=== PATIENT | female | born 1980 | race Caucasian/White ===

== ENCOUNTER → 2018-07-04 07:52 | Outpatient (CLI) | payer OTHER, SELFPAY ==
[2018-07-04 11:42] LABS: Anion Gap 10.7 mmol/L (3-11); BUN 19 mg/dL (7-18); CO2 24.3 mmol/L (21.0-32.0); CREATININE 0.88 mg/dL (0.55-1.02); Calcium 8.7 mg/dL (8.5-10.1); Chloride 105 mmol/L (98-107); Cholesterol 194 mg/dL (50-200); Glucose 87 mg/dL (70-100); HDL Cholesterol 70 mg/dL (40-60); LDL CHOLESTEROL 112 mg/dL (<100); Potassium 4.2 mmol/L (3.5-5.1); Sodium 140 mmol/L (136-145); Triglyceride 43 mg/dL (30-150)
== END ==
PROVIDERS: PCP Nurse Practitioner Family; Visit Provider Nurse Practitioner Family
DX: Z00.00 Encounter for general adult medical examination without abnormal findings (principal)
CPT/HCPCS: 36415; 80048; 80061; 83721

== ENCOUNTER 2019-07-17 07:36 | Outpatient (CLI) | payer OTHER, SELFPAY ==
[2019-07-17 12:13] LABS: Hemoglobin A1C 4.9 % (4.5-6.2)
[2019-07-17 12:30] LABS: ALT 27 U/L (12-78); AST 14 U/L (15-37); Albumin 3.9 g/dL (3.4-5.0); Alkaline Phosphatase 61 U/L (46-116); BUN 16 mg/dL (7-18); Bilirubin, Total 0.5 mg/dL (0.2-1.0); CREATININE 0.94 mg/dL (0.55-1.02); Calcium 8.6 mg/dL (8.5-10.1); Chloride 105 mmol/L (98-107); FREE T4 0.95 ng/dL (0.76-1.46); Glucose 79 mg/dL (70-100); Potassium 4.4 mmol/L (3.5-5.1); Sodium 142 mmol/L (136-145); Total Protein 6.7 g/dL (6.4-8.2)
[2019-07-17 12:47] LABS: Calculated LDL 94 mg/dL; Cholesterol 167 mg/dL (50-200); HDL Cholesterol 62 mg/dL (40-60); Triglyceride 58 mg/dL (30-150)
[2019-07-17 12:48] LABS: ESR 5 mm/hr (0-20)
[2019-07-18 09:41] LABS: Rheumatoid Factor 8 IU/mL (<12.5)
[2019-07-18 11:32] LABS: Lyme Ab w Rflx to Lyme Confirm Negative
[2019-07-18 13:56] LABS: ANA Interpretation Negative (NEGAT)
[2019-07-19 17:13] LABS: Anaplasma phagocytophilum Negative (Negative); B. miyamotoi PCR Negative (Negative); Babesia divergens/MO-1 Negative (Negative); Babesia duncani Negative (Negative); Babesia microti Negative (Negative); Ehrlichia chaffeensis Negative (Negative); Ehrlichia ewingii/canis Negative (Negative); Ehrlichia muris eauclairensis Negative (Negative)
== END 2019-07-17 07:56 ==
PROVIDERS: PCP Nurse Practitioner Family; Visit Provider Nurse Practitioner Family
DX: E78.5 Hyperlipidemia, unspecified; M79.10 Myalgia, unspecified site; M25.50 Pain in unspecified joint
CPT/HCPCS: 36415; 80053; 80061; 83721; 85652; 87798; 83036; 84439; 84443; 86038; 86140; 86431; 86618

== ENCOUNTER 2019-08-09 00:39 | Outpatient (CLI) | payer OTHER, SELFPAY ==
--- NOTE | 2019-08-09 06:09 | DI.MAMMO_ITS ---
SYMPTOM/DIAGNOSIS: SCREENING, Z12.31 MAMMOGRAMS: Mammograms were interpreted according to the usual protocol including computer analysis with CAD system, tomosynthesis and C view imaging. This is a baseline examination. The breasts are composed of scattered fibroglandular densities, breast density, Category B. No suspicious masses or suspicious microcalcifications are seen. IMPRESSION: Category 1, breast density, Category B. Negative mammogram. Yearly screening mammography is recommended. [facility] ASSESSMENT OF FINDINGS: Negative. Category 1. Patient will receive a letter notifying them of these results. BI-RADS category B. There are scattered areas of fibroglandular density.
== END 2019-08-09 00:59 ==
PROVIDERS: PCP Nurse Practitioner Family; Visit Provider Nurse Practitioner Family
DX: Z12.31 Encounter for screening mammogram for malignant neoplasm of breast (principal)
CPT/HCPCS: 77063; 77067

== ENCOUNTER 2020-08-13 00:36 | Outpatient (CLI) | payer OTHER, SELFPAY ==
--- NOTE | 2020-08-13 07:15 | DI.MAMMO_ITS ---
EXAM: MAMMO SCREENING CLINICAL HISTORY: screening,Z12.39 TECHNIQUE: Mammograms were interpreted according to the usual protocol including computer analysis w [employer] CAD system, tomosynthesis and C-view imaging. COMPARISON: FINDINGS: The breasts are of moderate density symmetrical distribution of fibroglandular tissue. No dominant m ass or clumped microcalcification is identified in either breast. The current examination is compare d with previous examination of July 2019 and there is question of increased prominence of a foca l area of asymmetric radiodensity projected in the lateral central portion of the right breast on CC view. No other significant change seen. Additional spot compression views of this area are requeste d for further evaluation, to include a CC spot compression view of the right breast IMPRESSION: Additional mammographic views of the right breast requested as described above, to include a CC spot compression view of the right breast. Breast ultrasound may be indicated as well depending on the re sults of the additional mammographic views. BI-RADS Category 0 - Assessment Incomplete: Need additional imaging evaluation Breast Density - Category B - Scattered areas of fibroglandular density
== END 2020-08-13 00:56 ==
PROVIDERS: PCP Nurse Practitioner Family; Visit Provider Nurse Practitioner Family
DX: Z12.31 Encounter for screening mammogram for malignant neoplasm of breast (principal); R92.8 Other abnormal and inconclusive findings on diagnostic imaging of breast
CPT/HCPCS: 77063; 77067

== ENCOUNTER 2020-08-21 01:26 | Outpatient (CLI) | payer OTHER, SELFPAY ==
--- NOTE | 2020-08-21 10:30 | DI.MAMMO_ITS ---
EXAM: MG MAMMO SCREEN CALL BACK UNI and U/S breast RT limited CLINICAL HISTORY: F/U MAMMO, ?INCREASED PROMINENCE OF ASYMMETRIC DENSITY. TECHNIQUE: Craniocaudal and mediolateral oblique Full Field Digital Mammography views of the right b reast with Computer Aided Diagnosis followed by Tomosynthesis and right breast ultrasound. COMPARISON: Priors available for comparison. FINDINGS: Mammography/Tomosynthesis: Masses/Architectural Distortion: A parenchymal lymph node is again seen in the outer right breast. N o persistent asymmetric density is seen. Microcalcifictions: No suspicious pleomorphic-type are seen. Skin Thickening/Nipple Retraction: None. Right breast US: Echotexture: Normal appearance of the glandular tissue. Shadowing: No suspicious foci. Cyst: None. Solid lesions: None seen. Ductal dilation: None. IMPRESSION: 1. No evidence of malignancy is noted. 2. Unless there is more urgent need, follow-up screening mammography is recommended, as per [place] guidelines. 3. The findings were discussed with the patient on the date of the examination. BI-RADS Category 1 - Negative Breast Density - Category B - Scattered areas of fibroglandular density A negative radiographic report should not delay biopsy if a dominant or clinically suspicious mass is present. Up to ten percent of cancers are not identified on mammography. A negative report may reinforce clinical impression. Adenosis and dense breasts may obscure an underlying neoplasm. False positive reports average 6 to 10%. Patient will receive a letter notifying them of these results.
== END 2020-08-21 01:46 ==
PROVIDERS: PCP Nurse Practitioner Family; Visit Provider Nurse Practitioner Family
DX: Z12.39 Encounter for other screening for malignant neoplasm of breast (principal); R92.2 Inconclusive mammogram
CPT/HCPCS: 76642; 77063; 77067

== ENCOUNTER 2021-07-25 09:16 | Outpatient (REF) | payer OTHER, SELFPAY ==
--- NOTE | 2021-07-25 08:00 | PAPFT_PTH ---
PATIENT: Manda Noel LOC: [facility] U#:[id number] AGE/SX: 40/F ROOM: RE07/25/[address]: NATALIE Ornelas : 1980 BED: DIS: 07/25/2021 SPEC #: [id number] RECD: 07/25/21 12:54 STATUS: ASHER REQ #: [id number] NICKOLAS: 07/25/21 08:[address]: Susan Suárez DEPT: [facility] Cytology RECD BY: Diana Benito Tissues: 1 - CX/ENDOCX FOR PAP SMEARS Procedures: PAP THIN PREP/UVM Screening HPV DNA PROBE Comments: [id number]
[2021-07-25 13:19] LABS: Bilirubin Negative (Negative); Blood Negative (Negative); Clarity Clear (Clear); Glucose Negative (Negative); Ketones Negative (Negative); Leukocyte Esterase Negative (Negative); Nitrite Negative (Negative); Specific Gravity 1.015 (1.005-1.025); Urobilinogen 0.2 EU/dL (Up TO 0.2)
[2021-07-25 13:22] LABS: Abs Immature Grans 0.02 10^3/uL (0.0-0.06); Absolute Basophil Count 0.05 10^3/uL (0.0-0.2); Absolute Eosinophil Count 0.03 10^3/uL (0.0-0.7); Absolute Lymphocyte Count 2.05 10^3/uL (1.2-3.4); Absolute Monocyte Count 0.42 10^3/uL (0.1-0.8); Absolute Neutrophil Count 3.99 10^3/uL (1.2-6.7); Basophils % 0.8; Eosinophils % 0.5; HCT 40.8 % (36.0-46.0); HGB 13.6 g/dL (11.2-15.7); Immature Grans % 0.3; Lymphocytes % 31.3; MCH 31.1 pg (27.0-33.0); MCHC 33.3 % (32.0-36.0); MCV 93.4 fL (80-95); MPV 10.5 fL (8.0-11.0); Monocytes % 6.4; Neutrophils % 60.7; Nucleated RBC 0 %; Platelet Count 296 10^3/uL (130-400); RBC 4.37 10^6/uL (3.93-5.22); RDW 11.9 % (11.7-14.6); RDW-SD 40.7 fL; WBC 6.56 10^3/uL (4.4-10.8)
[2021-07-25 13:51] LABS: ALT 20 U/L (14-59); AST 17 U/L (15-37); Albumin 4.5 g/dL (3.4-5.0); Alkaline Phosphatase 61 U/L (46-116); Anion Gap 9.4 mmol/L (3-11); BUN 10 mg/dL (7-18); Bilirubin, Total 0.5 mg/dL (0.2-1.0); CO2 27.6 mmol/L (21.0-32.0); CREATININE 0.8 mg/dL (0.55-1.02); Calcium 9.3 mg/dL (8.5-10.1); Calculated LDL 96 mg/dL (<100); Chloride 104 mmol/L (98-107); Cholesterol 176 mg/dL (<200); Glucose 83 mg/dL (74-106); HDL Cholesterol 73 mg/dL (40-60); Potassium 4.3 mmol/L (3.5-5.1); Sodium 141 mmol/L (136-145); TSH (W/Ref FT4) 2.13 uIU/mL (0.36-3.74); Total Protein 7.2 g/dL (6.4-8.2); Triglyceride 35 mg/dL (<150)
[2021-07-26 11:38] LABS: COVID-19 RT-PCR UVMMC Result Negative (Negative)
== END 2021-07-25 09:17 | disposition home or self-care (01) ==
LOC: LBN 09:16
PROVIDERS: PCP Nurse Practitioner Family; Visit Provider Nurse Practitioner Family
DX: Z00.00 Encounter for general adult medical examination without abnormal findings (principal); R10.30 Lower abdominal pain, unspecified; R10.2 Pelvic and perineal pain; R51.9 Headache, unspecified; Z12.4 Encounter for screening for malignant neoplasm of cervix; Z11.51 Encounter for screening for human papillomavirus (HPV); Z20.822 Contact with and (suspected) exposure to COVID-19
CPT/HCPCS: 80053; 80061; 88142; U0003; 81003; 84443; 85025; 87480; 87510; 87624; 87660

== ENCOUNTER 2021-08-25 02:01 | Outpatient (CLI) | payer OTHER, SELFPAY ==
--- NOTE | 2021-08-25 08:15 | DI.MAMMO_ITS ---
Exam(s) MAMMO SCREENING EXAM: MAMMO SCREENING CLINICAL HISTORY: screening, Z12.39. TECHNIQUE: Bilateral full field digital CC and MLO mammographic images were obtained with 3D tomosyn thesis and utilizing computer aided detection (CAD). COMPARISON: Prior mammograms dating back to 2019, the most recent being July 2020. Ultrasound July 2020 was reviewed FINDINGS: There has been no significant change in the appearance and distribution of fibroglandular tissue. There are no new spiculated masses nor malignant appearing microcalcification groups. Benign-appearing lymph node in the upper-outer quadrant of the right breast is again noted. Small be nign-appearing lymph node anteriorly in the opposite-left breast is also again noted. There is no significant architectural distortion nor skin thickening-retraction. IMPRESSION: No radiographic evidence of malignancy. BI-RADS Category 1 - Negative Breast Density - Category B - Scattered areas of fibroglandular density Breast density Category C or D implies that the patient has dense breast tissue. Dense breast tissue can make it harder to find cancer on a mammogram. Dense breast tissue is also associated with an incr eased risk of breast cancer. This information about the result of the mammogram report was provided to the patient to raise their awareness. Use this report when you speak with the patient about their risks for breast cancer, which includes their family history. At that time, you may recommend additional screening tests (Ultrasoun d or MRI) as these tests may add significant information. A negative radiographic report should not delay biopsy if a dominant or clinically suspicious mass is present. Up to ten percent of cancers are not identified on mammography. A negative report may reinforce clinical impression. Adenosis and dense breasts may obscure an underlying neoplasm. False positive reports average 6 to 10%. Patient will receive a letter notifying them of these results.
== END 2021-08-25 02:21 ==
PROVIDERS: PCP Nurse Practitioner Family; Visit Provider Nurse Practitioner Family
DX: Z12.31 Encounter for screening mammogram for malignant neoplasm of breast (principal)
CPT/HCPCS: 77063; 77067

== ENCOUNTER 2021-09-01 01:50 | Outpatient (CLI) | payer OTHER, SELFPAY ==
--- NOTE | 2021-09-01 07:30 | DI.RAD_ITS ---
Exam(s) XR HIP RT COMPLETE AP PELVIS EXAM: XR HIP RT COMPLETE AP PELVIS INDICATION: right hip pain x 6mo,m25.551. COMPARISON: No exams were available for comparison TECHNIQUE: 2D digital imaging was performed. FINDINGS: Hip joint spaces are well maintained. No joint space or soft tissue calcifications. SI joints and pub ic symphysis are unremarkable. IMPRESSION: Negative pelvis and right hip. DATA REPOSITORY: RADIATION DOSE DELIVERED:
--- NOTE | 2021-09-01 10:45 | DI.RAD_ITS ---
Exam(s) XR LUMBAR SPINE COMPLETE EXAM: XR LUMBAR SPINE COMPLETE CLINICAL HISTORY: low back pain, M54.50. TECHNIQUE: 2D digital imaging was performed. COMPARISON: No exams were available for comparison FINDINGS: BONES: No fracture or destructive lesion. Vertebral bodies are unremarkable. Mild facet hypertrophy identified L4-5 and L5-S1.. There is moderate to severe narrowing of the L4-5 and L5-S1 disc spaces. There are small endplate os teophytes. Remaining disc spaces are well maintained. ALIGNMENT: Lumbar spinal alignment is within normal limits. No spondylolysis or spondylolisthesis. SOFT TISSUE: Normal. IMPRESSION: Degenerative disc changes at L4-5 and L5-S1. DATA REPOSITORY: RADIATION DOSE DELIVERED:
== END 2021-09-01 02:10 ==
PROVIDERS: PCP Nurse Practitioner Family; Visit Provider Nurse Practitioner Family
DX: M25.551 Pain in right hip (principal); M54.50 Low back pain, unspecified; M51.36 Other intervertebral disc degeneration, lumbar region; M51.37 Other intervertebral disc degeneration, lumbosacral region
CPT/HCPCS: 72110; 73502

== ENCOUNTER 2021-09-10 03:01 | Outpatient (CLI) | payer OTHER, SELFPAY ==
--- NOTE | 2021-09-10 09:15 | DI.MRI_ITS ---
Exam(s) MR LUMBAR SPINE WO EXAM: MR LUMBAR SPINE WO CLINICAL HISTORY: chronic low back pain,degenertive joint disease,radiculopathy,m47.816,. TECHNIQUE: Multiplanar multisequence MRI of the Lumbar spine was performed. COMPARISON: CR XR LUMBAR SPINE COMPLETE from 09/01/2021 FINDINGS: Plain films of 09/01/2021 reviewed. Conus medullaris is at normal level. There is no evidence of conus mass nor subjacent clumping of in trathecal nerve roots to suggest arachnoiditis. The distal thecal sac appears unremarkable.There is no evidence of Tarlov intrasacral cysts nor other significant findings within the sacral canal Bones:There are no fractures nor ominous osseous lesions in the lumbar vertebral bodies and visualize d sacrum. With respect to the individual levels... T12-L1: Unremarkable L1-2: Normal disc height and signal. No disc herniation nor central canal stenosis.No foraminal steno sis L2-3: Normal disc height. No disc herniation nor central canal stenosis.No foraminal stenosis.No face t arthropathy. L3-4: Normal disc height. There is a right paracentral disc herniation which extends posteriorly 4 m illimeters, indenting the thecal sac at this level. Disc protrusion is approximately 8 millimeters w naz.This disc herniation impresses the thecal sac at this level. It does not extend into the exiting neural foramen and these are patent on both sides.No facet arthropathy. L4-5: Moderate decreased disc height. Modic type 1 sub endplate marrow edema changes. There is jesus lar bulging with a superimposed central subligamentous disc protrusion. This extends posteriorly 2 m illimeters and is approximately 10 millimeters wide. Density anterior aspect thecal sac. Mild centr al canal stenosis. No significant foraminal stenosis. Minimal facet degenerative changes. L5-S1: This level exhibits chronic advanced disc space narrowing and Modic type 2 sub endplate marrow fatty changes. There is symmetrical annular bulging at this level without a significant disc hernia tion and central canal dimensions are within normal limits. There is mild foraminal stenosis bilater ally which is vertical foraminal stenosis due to the disc height loss. Soft tissues: paraspinal soft tissues appear unremarkable. IMPRESSION: 1. At the L3-4 level there is a right paracentral disc herniation as described above. This impresses the thecal sac at this level. It is not extend into the exiting neural foramina at this level. 2. Other findings at L4-5 and L5-S1 levels as described above. DATA REPOSITORY:
== END 2021-09-10 03:21 ==
PROVIDERS: PCP Nurse Practitioner Family; Visit Provider Nurse Practitioner Family
DX: M47.816 Spondylosis without myelopathy or radiculopathy, lumbar region (principal); M54.16 Radiculopathy, lumbar region; M51.26 Other intervertebral disc displacement, lumbar region; M48.07 Spinal stenosis, lumbosacral region; M48.061 Spinal stenosis, lumbar region without neurogenic claudication
CPT/HCPCS: 72148

== ENCOUNTER → 2022-08-26 02:16 | Outpatient (CLI) | payer OTHER, SELFPAY ==
--- NOTE | 2022-08-26 08:30 | DI.MAMMO_ITS ---
Exam(s) MAMMO SCREENING EXAM: MAMMO SCREENING CLINICAL HISTORY: screening,z12.39 TECHNIQUE: Bilateral full field digital CC and MLO mammographic images were obtained with 3D tomosyn thesis and utilizing computer aided detection (CAD). COMPARISON: Available for comparison. FINDINGS: Masses/Architectural Distortion: There is an ovoid density in the outer left breast on the CC view wh ich is shown interval increase in size. Microcalcifications: No suspicious pleomorphic-type are seen. Skin Thickening/Nipple Retraction: None. IMPRESSION: 1. Ovoid density in the outer left breast which has shown interval increase in size. 2. This area should be further evaluated with spot compression view ultrasound may be indicated at th at time. BI-RADS Category 0 - Assessment Incomplete: Need additional imaging evaluation Breast Density - Category B - Scattered areas of fibroglandular density Breast density category C or D implies that the patient has dense breast tissue. Dense breast tissue is very common and is not abnormal but dense breast tissue can make it harder to find cancer on a ma mmogram. Also, dense breast tissue may increase their breast cancer risk. This information about the result of the mammogram report was provided to the patient to raise their awareness. Use this report when you speak with the patient about their risks for breast cancer, which includes their family hist ory. At that time, you may recommend for more screening tests (Ultrasound or MRI) as they might be us eful based on their risk. A negative radiographic report should not delay biopsy if a dominant or clinically suspicious mass is present. Up to ten percent of cancers are not identified on mammography. A negative report may reinforce clinical impression. Adenosis and dense breasts may obscure an underlying neoplasm. False positive reports average 6 to 10%. Patient will receive a letter notifying them of these results.
== END ==
PROVIDERS: PCP Nurse Practitioner Family; Visit Provider Nurse Practitioner Family
DX: Z12.31 Encounter for screening mammogram for malignant neoplasm of breast (principal); R92.8 Other abnormal and inconclusive findings on diagnostic imaging of breast
CPT/HCPCS: 77063; 77067

== ENCOUNTER → 2022-09-01 01:17 | Outpatient (CLI) | payer OTHER, SELFPAY ==
--- NOTE | 2022-09-01 | DI.US_ITS ---
Exam(s) MG MAMMO SCREEN CALL BACK UNI US BREAST LT COMPLETE EXAM: MG MAMMO SCREEN CALL BACK UNI -LEFT AND COMPLETE LEFT BREAST ULTRASOUND CLINICAL HISTORY: F/U ABNL MAMMO, OUTER LT BREAST OVOID DENSITY INCREASED IN SIZE. TECHNIQUE: Unilateral spot mammographic images obtained with 3D tomosynthesisand utilizing computer aided detection (CAD). . Complete left breast Ultrasound was also performed, including all 4 quadrants, the retroareolar regio n, and the ipsilateral axilla. COMPARISON: Prior mammograms were reviewed. This additional imaging was performed due to findings described on the recent screening mammogram of 08/26/2022. FINDINGS: DIAGNOSTIC LEFT BREAST MAMMOGRAM: Additional mammographic views performed todayrender the finding similar in appearance to prior mammog jose. COMPLETE LEFT BREAST ULTRASOUND: Ultrasound performed today reveals a solitary finding which is at the 2 o'clock position has the appe arance of a 5 x 3 millimeter benign intramammary lymph node. This corresponds to the finding on the mammogram. There are no other significant focal ultrasound findings in all 4 quadrants nor in the re troareolar region. Scanning of the left axilla is negative for significant adenopathy. IMPRESSION: 1. Benign-appearing mammographic finding. 2. Benign-appearing corresponding ultrasound finding which has appearance of a benign lymph node. Appropriate follow-up , as discussed by myself with the patient today, is repeat left breast mammogra m in 6 months.. The patient was informed of these findings and recommendations prior to leaving the department today. BI-RADS Category 3 - 6 month - Probably Benign Finding: Recommend follow-up mammography in 6 months Breast Density - Category B - Scattered areas of fibroglandular density Breast density Category C or D implies that the patient has dense breast tissue. Dense breast tissue can make it harder to find cancer on a mammogram. Dense breast tissue is also associated with an incr eased risk of breast cancer. This information about the result of the mammogram report was provided to the patient to raise their awareness. Use this report when you speak with the patient about their risks for breast cancer, which includes their family history. At that time, you may recommend additional screening tests (Ultrasoun d or MRI) as these tests may add significant information. A negative radiographic report should not delay biopsy if a dominant or clinically suspicious mass is present. Up to ten percent of cancers are not identified on mammography. A negative report may reinforce clinical impression. Adenosis and dense breasts may obscure an underlying neoplasm. False positive reports average 6 to 10%. Patient will receive a letter notifying them of these results.
== END ==
PROVIDERS: PCP Nurse Practitioner Family; Visit Provider Nurse Practitioner Family
DX: Z12.31 Encounter for screening mammogram for malignant neoplasm of breast (principal); R92.8 Other abnormal and inconclusive findings on diagnostic imaging of breast
CPT/HCPCS: 76642; 77063; 77067

== ENCOUNTER 2022-12-14 12:03 | Outpatient (REF) | payer OTHER, SELFPAY ==
[2022-12-14 12:16] LABS: Bilirubin Negative (Negative); Blood Moderate (Negative); Clarity Clear (Clear); Glucose 100 mg/dL (Negative); Ketones Negative (Negative); Leukocyte Esterase Negative (Negative); Nitrite Positive (Negative); Urobilinogen 0.2 EU/dL (Up TO 0.2)
[2022-12-14 12:36] LABS: Epithelial Cells Few HPF (Negative)
[2022-12-14 12:37] LABS: Bacteria Moderate HPF (Negative); C & S Indicated? Yes; Casts Negative LPF (Negative); Crystals Negative HPF (Negative); Mucus Negative (Negative); Other Cells Few Renal (Negative)
== END 2022-12-14 12:04 | disposition home or self-care (01) ==
LOC: LBN 12:03
PROVIDERS: PCP Nurse Practitioner Family; Visit Provider Nurse Practitioner Family
DX: R35.0 Frequency of micturition (principal); R82.998 Other abnormal findings in urine
CPT/HCPCS: 87077; 81003; 81015; 87086; 87186

== ENCOUNTER 2023-03-10 01:09 | Outpatient (CLI) | payer OTHER, SELFPAY ==
--- NOTE | 2023-03-10 07:45 | DI.MAMMO_ITS ---
Exam(s) MG MAMMO DIAGNOSTIC UNI US BREAST LT LIMITED EXAM: MAMMO DIAGNOSTIC UNI-LEFT AND COMPLETE LEFT BREAST ULTRSOUND CLINICAL HISTORY: Abnormal mammo left, 6 mo f/u, r92.8,z09. TECHNIQUE: Unilateral spot mammographic images were obtained with 3D tomosynthesis technique and uti lizing computer aided detection (CAD). Complete left breast ultrasound performed including all 4 quadrants as well as the left axilla. COMPARISON: Prior mammograms were reviewed, the most recent being AUGUST 2022.. Prior ultrasound of August 2022 was also reviewed. FINDINGS: DIAGNOSTIC LEFT BREAST MAMMOGRAM: The kidney-shaped small nodular density in the upper-outer quadrant is unchanged mammographically fro m 08/26/2022. There are no new spiculated masses nor malignant-appearing microcalcification groups i n the left breast. There is no new architectural distortion or skin thickening-traction COMPLETE LEFT BREAST ULTRASOUND: Again noted is a solitary finding of the 2 o'clock position measuring 5 by 3 mm and having the appear ance of a probable benign intramammary lymph node. This appears unchanged in size and configuration from the ultrasound of August 2022. There are no other focal ultrasound findings in all 4 quadrants of the left breast. Scanning of the left axilla is negative for significant adenopathy IMPRESSION: 1. Stable benign-appearing left breast mammogram findings. 2. Stable benign-appearing corresponding left breast ultrasound finding, probably benign intramammary lymph node. Appropriate follow-up is to keep this patient on her yearly mammogram schedule, this implying that he r next bilateral mammogram would be in July or August 2023, with earlier imaging if a self dete cted breast change is noted.. The patient was informed of the findings and follow-up recommendations prior to leaving the [facility] today. BI-RADS Category 2 - Benign Findings Breast Density - Category B - Scattered areas of fibroglandular density Breast density Category C or D implies that the patient has dense breast tissue. Dense breast tissue can make it harder to find cancer on a mammogram. Dense breast tissue is also associated with an incr eased risk of breast cancer. This information about the result of the mammogram report was provided to the patient to raise their awareness. Use this report when you speak with the patient about their risks for breast cancer, which includes their family history. At that time, you may recommend additional screening tests (Ultrasoun d or MRI) as these tests may add significant information. A negative radiographic report should not delay biopsy if a dominant or clinically suspicious mass is present. Up to ten percent of cancers are not identified on mammography. A negative report may reinforce clinical impression. Adenosis and dense breasts may obscure an underlying neoplasm. False positive reports average 6 to 10%. Patient will receive a letter notifying them of these results.
== END 2023-03-10 01:29 ==
LOC: DI 01:09
PROVIDERS: PCP Nurse Practitioner Family; Visit Provider Nurse Practitioner Family
DX: R92.8 Other abnormal and inconclusive findings on diagnostic imaging of breast (principal); Z09 Encounter for follow-up examination after completed treatment for conditions other than malignant neoplasm
CPT/HCPCS: 76642; 77061; 77065; G0279

== ENCOUNTER 2023-06-18 01:23 | Outpatient (CLI) | payer OTHER, SELFPAY ==
[2023-06-18 12:26] LABS: Abs Immature Grans 0.06 10^3/uL (0.0-0.06); Absolute Basophil Count 0.07 10^3/uL (0.0-0.2); Absolute Eosinophil Count 0.05 10^3/uL (0.0-0.7); Absolute Lymphocyte Count 2.08 10^3/uL (1.2-3.4); Absolute Monocyte Count 0.65 10^3/uL (0.1-0.8); Basophils % 0.6; Eosinophils % 0.4; HCT 43.3 % (36.0-46.0); HGB 14.5 g/dL (11.2-15.7); Immature Grans % 0.5; Lymphocytes % 17.2; MCH 31.9 pg (27.0-33.0); MCHC 33.5 % (32.0-36.0); MCV 95 fL (80-95); MPV 10.3 fL (8.0-11.0); Monocytes % 5.4; Neutrophils % 75.9; Platelet Count 320 10^3/uL (130-400); RBC 4.55 10^6/uL (3.93-5.22); RDW-SD 42.4 fL; WBC 12.11 10^3/uL (4.4-10.8)
[2023-06-18 12:30] LABS: Absolute Neutrophil Count 9.19 10^3/uL (1.2-6.7)
[2023-06-18 12:58] LABS: Hemoglobin A1C 5.1 % (<5.7)
[2023-06-18 13:01] LABS: Vitamin D 25 Total 43.3 ng/mL (30-100)
[2023-06-18 13:17] LABS: ALT 25 U/L (14-59); AST 17 U/L (15-37); Albumin 4.4 g/dL (3.4-5.0); Alkaline Phosphatase 70 U/L (46-116); Anion Gap 11.2 mmol/L (3-11); BUN 14 mg/dL (7-18); Bilirubin, Total 0.6 mg/dL (0.2-1.0); CO2 25.8 mmol/L (21.0-32.0); CREATININE 0.9 mg/dL (0.55-1.02); Calcium 9.2 mg/dL (8.5-10.1); Calculated LDL 94 mg/dL (<100); Chloride 104 mmol/L (98-107); Cholesterol 187 mg/dL (<200); Estimated GFR 80.84 (mL/min/1.73m2); Glucose 96 mg/dL (74-106); HDL Cholesterol 86 mg/dL (40-60); Potassium 4.2 mmol/L (3.5-5.1); Sodium 141 mmol/L (136-145); TSH (W/Ref FT4) 1.21 uIU/mL (0.36-3.74); Total Protein 7.3 g/dL (6.4-8.2); Triglyceride 37 mg/dL (<150); Vitamin B12 600 pg/mL (193-986)
[2023-06-18 13:19] LABS: HCG Quant, Pregnancy < 1 mIU/mL (1-3)
[2023-06-18 23:25] LABS: FSH 4.7 mIU/mL (See Note)
[2023-06-18 23:28] LABS: Prolactin 7.5 ng/mL (See Note)
[2023-06-21 09:48] LABS: Lyme Ab w Rflx to Lyme Confirm Negative (Negative)
[2023-06-22 15:38] LABS: Anaplasma phagocytophilum Negative (Negative); B. miyamotoi PCR Negative (Negative); Babesia divergens/MO-1 Negative (Negative); Babesia duncani Negative (Negative); Babesia microti Negative (Negative); Ehrlichia chaffeensis Negative (Negative); Ehrlichia ewingii/canis Negative (Negative); Ehrlichia muris eauclairensis Negative (Negative)
== END 2023-06-18 01:24 | disposition home or self-care (01) ==
LOC: LOS 01:24
PROVIDERS: PCP Nurse Practitioner Family; Referring Provider Nurse Practitioner Family; Visit Provider Nurse Practitioner Family
DX: R53.83 Other fatigue (principal); Z00.00 Encounter for general adult medical examination without abnormal findings
CPT/HCPCS: 36415; 80053; 80061; 82306; 87798; 82607; 83001; 83036; 84146; 84443; 84702; 85025; 86618

== ENCOUNTER → 2023-08-26 02:45 | Outpatient (CLI) | payer OTHER, SELFPAY ==
--- NOTE | 2023-08-26 12:55 | DI.MRI_ITS ---
Exam(s) MR LOWER JOINT RT WO EXAM: MR LOWER JOINT RT WO CLINICAL HISTORY: chronic right hip pain,M25.551 TECHNIQUE: Multiplanar multisequence MRI of the hip was performed. COMPARISON: CR XR HIP RT COMPLETE AP PELVIS from 09/01/2021 FINDINGS: MARROW:There is no evidence of fracture, bone contusion, nor avascular necrosis. There are no signif icant osseous lesions.There is no significant osseous excrescence at the femoral head-neck junction t o suggest the presence of cam-type MARSHALL. EFFUSION: There is no evidence of hip joint effusion. BURSAE: There is a sliver of fluid just lateral to the greater trochanter of the right hip. There is no evidence of iliopsoas bursitis. HIP JOINT SPACE: No obvious chondral defects.There is no hypertrophy of the ligamentum teres nor sign al abnormality at the fovea centralis. LABRUM: There is no evidence of obvious labral tear nor evidence of paralabral cyst. TENDONS: Mild gluteus medius tendinitis. ISCHIAL TUBEROSITY/HAMSTRING: There is no abnormal intraosseous signal in the ipsilateral ischial tub erosity nor tear of the common hamstrings tendon attachment site at this level. OTHER: There is no abnormal intramuscular signal within the quadratus femoris to suggest the presence of impingement syndrome at this level. Incidentally noted is what appears to be a Bartholin's cyst on the right side of the vulva. This eri ures approximately 2 by 1.3 cm. There is also a 2.3 cm cyst in the right ovary. IMPRESSION: 1. Mild gluteus medius tendinitis and mild overlying trochanteric bursitis of the right hip. 2. Incidentally noted is right-sided vulvar Bartholin's gland cyst measuring 2 x 1.3 cm. 3. Also noted is a 2.4 cm cyst in the right ovary. DATA REPOSITORY:
--- NOTE | 2023-08-26 19:48 | DI.VRAD_ITS ---
PROCEDURE INFORMATION: Exam: MR Right Lower Extremity Joint Without Contrast; Hip Exam date and time: 08/26/2023 12:22 PM Age: 42 years old Clinical indication: Pain; Hip; Right TECHNIQUE: Imaging protocol: Magnetic resonance imaging of the right lower extremity joint without contrast. Exam focused on the hip. COMPARISON: CR XR HIP RT COMPLETE AP PELVIS 09/01/2021 11:31 AM FINDINGS: Bones/joints: Unremarkable. No bone abnormalities. Labrum: Unremarkable. No tear. Bursae: Mild trochanteric bursitis right hip. Soft tissues: Unremarkable. Reproductive: 2 cm right Bartholin's gland cyst. 2.4 cm cyst right ovary. IMPRESSION: 1. Mild trochanteric bursitis right hip. 2. 2 cm right Bartholin's gland cyst. 3. 2.4 cm cyst right ovary. Dictated and Authenticated by: Mikael De Leon MD. Ordering:WOJCIECH Davis MD
== END ==
PROVIDERS: PCP Nurse Practitioner Family; Visit Provider Nurse Practitioner Family
DX: M70.61 Trochanteric bursitis, right hip (principal); N75.0 Cyst of Bartholin's gland; N83.291 Other ovarian cyst, right side
CPT/HCPCS: 73721

== ENCOUNTER → 2023-09-22 01:06 | Outpatient (CLI) | payer OTHER, SELFPAY ==
--- NOTE | 2023-09-22 08:30 | DI.MAMMO_ITS ---
Exam(s) MAMMO SCREENING EXAM: MAMMO SCREENING CLINICAL HISTORY: screening,z12.39. TECHNIQUE: Bilateral full field digital CC and MLO mammographic images were obtained with 3D tomosyn thesis and utilizing computer aided detection (CAD). COMPARISON: Prior mammograms were reviewed. FINDINGS: There has been no significant change in the appearance and distribution of the fibroglandular tissue. There are no CAD designations. There are no new spiculated masses nor malignant appearing microcalcification groups. Benign-appearing lymph node in the upper quadrant of the right breast is unchanged from prior studies . No new left breast findings. There is no significant architectural distortion nor skin thickening-retraction. IMPRESSION: No radiographic evidence of malignancy. Stable benign-appearing findings. BI-RADS Category 2 - Benign Findings Breast Density - Category B - Scattered areas of fibroglandular density Breast density Category C or D implies that the patient has dense breast tissue. Dense breast tissue can make it harder to find cancer on a mammogram. Dense breast tissue is also associated with an incr eased risk of breast cancer. This information about the result of the mammogram report was provided to the patient to raise their awareness. Use this report when you speak with the patient about their risks for breast cancer, which includes their family history. At that time, you may recommend additional screening tests (Ultrasoun d or MRI) as these tests may add significant information. A negative radiographic report should not delay biopsy if a dominant or clinically suspicious mass is present. Up to ten percent of cancers are not identified on mammography. A negative report may reinforce clinical impression. Adenosis and dense breasts may obscure an underlying neoplasm. False positive reports average 6 to 10%. Patient will receive a letter notifying them of these results.
== END ==
PROVIDERS: PCP Nurse Practitioner Family; Visit Provider Nurse Practitioner Family
DX: Z12.31 Encounter for screening mammogram for malignant neoplasm of breast (principal)
CPT/HCPCS: 77063; 77067

== ENCOUNTER 2023-11-17 10:26 | Outpatient (CLI) | payer OTHER, SELFPAY ==
[2023-11-17 12:29] LABS: Abs Immature Grans 0.04 10^3/uL (0.0-0.06); Absolute Basophil Count 0.04 10^3/uL (0.0-0.2); Absolute Eosinophil Count 0.06 10^3/uL (0.0-0.7); Absolute Lymphocyte Count 1.58 10^3/uL (1.2-3.4); Absolute Monocyte Count 0.85 10^3/uL (0.1-0.8); Absolute Neutrophil Count 7.25 10^3/uL (1.2-6.7); Basophils % 0.4; Eosinophils % 0.6; HGB 13.9 g/dL (11.2-15.7); Immature Grans % 0.4; Lymphocytes % 16.1; MCH 31.6 pg (27.0-33.0); MCHC 33.9 % (32.0-36.0); MCV 93 fL (80-95); MPV 10.2 fL (8.0-11.0); Monocytes % 8.7; Neutrophils % 73.8; Platelet Count 260 10^3/uL (130-400); RDW 12.5 % (11.7-14.6); RDW-SD 43.1 fL; WBC 9.82 10^3/uL (4.4-10.8)
[2023-11-17 12:55] LABS: ALT 22 U/L (14-59); AST 26 U/L (15-37); Albumin 3.8 g/dL (3.4-5.0); Alkaline Phosphatase 62 U/L (46-116); Anion Gap 9.6 mmol/L (3-11); BUN 10 mg/dL (7-18); Bilirubin, Total 0.4 mg/dL (0.2-1.0); CO2 25.4 mmol/L (21.0-32.0); CREATININE 0.9 mg/dL (0.55-1.02); Calcium 8.9 mg/dL (8.5-10.1); Chloride 102 mmol/L (98-107); Estimated GFR 80.34 (mL/min/1.73m2); Glucose 99 mg/dL (74-106); Potassium 3.6 mmol/L (3.5-5.1); Sodium 137 mmol/L (136-145); Total Protein 7.5 g/dL (6.4-8.2)
== END 2023-11-17 10:27 | disposition home or self-care (01) ==
LOC: LOS 10:26
PROVIDERS: PCP Nurse Practitioner Family; Referring Provider Nurse Practitioner Family; Visit Provider Nurse Practitioner Family
DX: R10.30 Lower abdominal pain, unspecified (principal); R11.2 Nausea with vomiting, unspecified
CPT/HCPCS: 36415; 80053; 85025

== ENCOUNTER 2023-11-17 20:54 | Outpatient (REF) | payer OTHER, SELFPAY ==
[2023-11-17 21:10] LABS: Bilirubin Negative (Negative); Blood Small (Negative); Clarity Turbid (Clear); Glucose Negative (Negative); Ketones Trace mg/dL (Negative); Leukocyte Esterase Negative (Negative); Nitrite Negative (Negative); Specific Gravity >= 1.030 (1.005-1.025); Urobilinogen 0.2 mg/dL (Up to 0.2); pH 5.5 (5-8)
[2023-11-17 21:19] LABS: Bacteria Many HPF (Negative); C & S Indicated? Yes; Casts Negative LPF (Negative); Crystals Few Amorphous HPF (Negative); Epithelial Cells Rare HPF (Negative); Mucus Negative (Negative)
== END 2023-11-17 20:55 | disposition home or self-care (01) ==
LOC: NCHCN 20:54
PROVIDERS: PCP Nurse Practitioner Family; Visit Provider Nurse Practitioner Family
DX: R10.30 Lower abdominal pain, unspecified (principal); R82.998 Other abnormal findings in urine
CPT/HCPCS: 81003; 81015; 87086

== ENCOUNTER 2023-12-23 09:16 | Day surgery (SDC) | payer OTHER, SELFPAY ==
[2023-12-23] VITALS (8 sets, daily range): BP systolic 109–131; BP diastolic 57–80; PULSE 82–103; RESP 13–19; TEMP 36.4–36.6; O2SAT 98–100; BMI 30.5
--- NOTE | 2023-12-23 09:28 | W.PM.DSUDISC ---
Date of service: 12/23/23 Time of Service: 14:00 Discharge Plan Disposition Patient Disposition: Home Condition: Stable Discharge Details Attending Provider: Judah Martinez Primary Care Provider: Susan Suárez Home Meds and New Rx's Prescriptions: New naproxen 250 mg tablet 250 - 500 mg PO BID PRN (Reason: moderate pain and swelling) Qty: 40 0RF oxycodone 5 mg tablet 5 - 10 mg PO .q4-6h PRN (Reason: severe pain) Qty: 18 0RF aspirin 81 mg capsule 81 mg PO DAILY 14 Days Qty: 14 0RF Continued vitamin B complex Tablet 1 tab PO DAILY buspirone 10 mg tablet 10 mg PO DAILY Qty: 90 3RF norethindrone (contraceptive) 0.35 mg tablet 0.35 mg PO DAILY Qty: 84 3RF ondansetron HCl 8 mg tablet 8 mg PO TID PRN (Reason: nausea and vomiting) Qty: 60 0RF cholecalciferol (vitamin D3) [Vitamin D3] 2,000 UNIT capsule 1,000 - 2,000 unit PO DAILY Patient Comments: 06/22/18 currently taking 1000 units daily. CM nicotine 14 mg/24 hr patch 24 hour 1 patch TD DAILY Qty: 90 4RF Rx Instructions: Apply 1 patch daily semaglutide (weight loss) 1 mg/0.5 mL pen injector 1 mg subcut QWEEK Qty: 2 2RF Rx Instructions: Week 9 through week 12: 1 mg once weekly semaglutide 0.25 mg or 0.5 mg (2 mg/3 mL) pen injector 0.5 mg subcut QWEEK Qty: 3 0RF Discharge Instructions Additional Instructions: Surgery: Right hip endoscopy with iliotibial band release and trochanteric bursectomy Activity: Weightbearing as tolerated. May use crutches or walker as needed for a few days. Gradually advance to full range of motion and activity over the next few weeks. A physical therapy prescription will be provided separately in the office at follow up if needed. Prescriptions: Aspirin 81 mg take 1 daily to prevent a blood clot for 2 weeks Naproxen 250 mg take 1-2 every 12 hours with a meal as needed for moderate pain Oxycodone 5 mg take 1-2 every 4-6 hours as needed for severe pain You may use [id number] Tylenol (acetaminophen) as needed for mild pain. These pain medications may be taken all at once or in different combinations as needed. Also, recommend Colace (docusate) as a stool softener as surgery and pain medicine cause constipation. You may try [id number] diphenhydramine (Benadryl) 25-50 mg nightly as a sleep aid Dressings: Leave dressing in place for 3 days. May then remove and leave open to air or cover incisions with Band-Aids. Leave the sticky Steri-Strips in place until they fall off or remove them after you shower. May shower after 5 days. Follow-up: 10-[address] Martinez You may take off the leg compression stockings this evening at home. You may also leave them on a few days longer if you have a history of leg swelling or edema. Let us know right away if you develop any redness, drainage, fevers, chest pain, or trouble breathing. Do not drink alcohol or drive for at least 24 hours after anesthesia. Please call the office during business hours with any questions or concerns. Discharge Orders Discharge Orders: Discharge Order (Routine); Ordered 12/23/23 Ordered By: Judah Martinez DS: Diagnosis Discharge Diagnosis (1) Trochanteric bursitis, right hip: Status: Acute (2) Iliotibial band syndrome of right side: Status: Acute
--- NOTE | 2023-12-23 09:29 | W.PM.OP ---
Date of service: 12/23/23 Time of Service: 12:00 Operative Note Operative Note DATE OF PROCEDURE: 12/23/23 PRE-OP DIAGNOSIS: Right hip 1. Iliotibial band syndrome 2. Trochanteric bursitis 3. Gluteal tendon partial tear POST-OP DIAGNOSIS: same PROCEDURE: Right hip endoscopic 1. Iiliotibial band release, CPT# 29844 2. Trochanteric bursectomy, CPT# 51067 SURGEON: Judah Martinez SALES LEAD GENERATOR: None None ANESTHESIA TYPE: Local By Surgeon and General LMA/ETT Refer to Anesthesia Record ESTIMATED BLOOD LOSS: 5 COMPLICATIONS: None Patient was transported to: PACU Patient's condition: stable Indications: Please see complete medical record for details. Findings: Thickened iliotibial band with adhesed and scarred more superficial tissue. Abundant and inflamed trochanteric bursitis with thickened bursa. Largely intact gluteal tendons with superficial fraying and tendinopathy. Procedure Description: In the operating room, general anesthesia was induced. The patient was positioned supine on the [facility] operating room table. All bony prominences were well-padded. Preoperative antibiotics were administered. The right hip was prepped and draped in the usual sterile fashion. The correct patient, procedure, and side of the procedure were all verified prior to incision. 30 cc of 0.25% bupivacaine containing epinephrine was infiltrated about the subcutaneous tissues for the planned anterior lateral and distal anterolateral portals as well as deeply over the greater trochanter. A knife was used to incise the skin for the anterior lateral and distal anterolateral portals followed by blunt dissection subcutaneously. Under fluoroscopic guidance, a switching stick and arthroscope were inserted localizing the iliotibial band over the greater trochanter. Blunt dissection and the mechanical shaver were used to resect fat and overlying tissue about the center of the iliotibial band and carefully expose the anterior and posterior margins. Once there was adequate exposure of the IT band, the greater trochanter was again localized under fluoroscopic guidance with a spinal needle inserted through the skin down to bone. This central area was marked using the radiofrequency ablator. A Culebra blade was brought in and used to create a 2 cm longitudinal incision in line with the IT band fibers as well as extending it in a cruciate fashion with 2 cm incisions anteriorly and posteriorly. The radiofrequency ablator was used to achieve hemostasis. The mechanical shaver was then used to debride the IT band released edges exposing the trochanteric bursa. The mechanical shaver was then used to excise the trochanteric bursa taking care to protect musculature about the margins of the greater trochanter as well as neurovascular structures especially posteriorly. There was excellent visualization of the vastus lateralis as well as gluteus medius confirming appropriate bursa excision. The hip was brought through range of motion including internal and external rotation and there was no impinging iliotibial band tissue or remaining pathologic bursa. The viewing and working portals were switched and appropriate IT band release, trochanteric bursa excision, and hemostasis confirmed. There was no significant gluteal tendon tear requiring repair. Suction was used to remove fluid from the endoscopic space. The portals were closed using 3-0 Monocryl in a buried fashion. Steri-Strips were applied over the incisions followed by Xeroform, 4 x 4 gauze, an ABD pad, and secured with tape. The patient awoke from anesthesia without complication and was transferred to the recovery room in a stable condition.
[2023-12-23] MEDS: Lactated Ringers 1,000 ML 30 ML IV (10:50)
--- NOTE | 2023-12-23 10:58 | ANES.PREOP_ITS ---
General Info Date of Service Date Performed: 12/23/23 Height: 5 ft 2 in Weight: 75.8 kg Body Mass Index (BMI): 30.5 Surgical Procedure: Operation Date: 12/23/23 11:50 Proposed Procedure Side Surgeon p Endoscopic Iliotibial Band Release w/Trochanteric Bursectomy, Possible Gluteal Tendon Repair Right Judah Martinez MD Meds Allergies and Home Medications Allergies Allergy/AdvReac Type Severity Reaction Status Date / Time No Known Allergies Allergy Verified 12/23/23 10:18 Home Medication Medication Instructions Recorded cholecalciferol (vitamin D3) 50 1,000 - 2,000 unit PO DAILY 06/17/16 mcg (2,000 unit) capsule (Vitamin D3) vitamin B complex 1 tab PO DAILY 07/14/19 nicotine 14 mg/24 hr daily 1 patch transdermal DAILY #90 ea 07/10/21 transdermal patch buspirone 10 mg tablet 10 mg PO DAILY #90 tabs 08/06/23 norethindrone (contraceptive) 0.35 0.35 mg PO DAILY #84 tabs 08/06/23 mg tablet ondansetron HCl 8 mg tablet 8 mg PO TID PRN nausea and 11/17/23 vomiting #60 tabs semaglutide (weight loss) 1 mg/0.5 1 mg (0.5 mL) subcut QWEEK #2 mL 12/21/23 mL subcutaneous pen injector semaglutide 0.25 mg or 0.5 mg (2 0.5 mg (0.736 mL) subcut QWEEK #3 12/21/23 mg/3 mL) subcutaneous pen injector mL aspirin 81 mg capsule 81 mg PO DAILY prevent blood clot 12/23/23 14 days #14 caps naproxen 250 mg tablet 250 - 500 mg (1 - 2 x 250 mg) PO 12/23/23 BID PRN moderate pain and swelling #40 tabs oxycodone 5 mg tablet 5 - 10 mg (1 - 2 x 5 mg) PO .q4-6h 12/23/23 PRN severe pain #18 tabs Current Visit Medications: Current Medications Generic Name Dose Route Start Last Admin Trade Name Freq PRN Reason Stop Dose Admin Ringer's Solution 1,000 mls @ 30 mls/hr 12/23/23 06:00 IV 01/21/24 23:59 INFUSION BARBARA Cefazolin Sodium/Dextrose 2 gm in 50 mls @ 100 mls/hr 12/23/23 06:00 Ancef Duplex IVPB 12/23/23 16:00 PREOP BARBARA IV Miscellaneous Supplies 1 each 12/23/23 06:00 Iv Access IV 01/21/24 23:59 DIRECTED BARBARA Oxycodone HCl 0 mg 12/23/23 09:28 Oxycodone 5 Mg Tab PO 01/22/24 09:27 Q3H PRN PRN Pain Sodium Chloride 0 ml 12/23/23 06:00 Normal Saline Flush 10 Ml Syr IV 01/21/24 23:59 PRN PRN Sodium Chloride 0 ml 12/23/23 06:00 Normal Saline 10 Ml Vial IJ 01/21/24 23:59 DIRECTED PRN Sterile Water 0 ml 12/23/23 06:00 Water,Injection,Sterile 10 Ml Vial IJ 01/21/24 23:59 DIRECTED PRN PFSH Active Problems Active Problems: Problem Status Onset Code Trochanteric bursitis, right hip M70.61 Oral contraceptive pill surveillance Z30.41 Chronic right hip pain M25.551, G89.29 Generalized anxiety disorder F41.1 Degenerative joint disease (DJD) of lumbar spine M47.816 Cigarette smoker F17.210 Overweight (BMI 25.0-29.9) E66.3 Medical History Medical History Hyperlipidemia Surgical History Surgical History (Updated 12/23/23 @ 10:21 by Hannah Vargas) Hx of wisdom tooth extraction S/P appendectomy (~2002) Tobacco Smoking/Tobacco Use Status: Current-Occasional Tobacco Type: cigarettes Smoking cigarettes per day: 4 Passive smoking exposure: Yes Second hand exposure: Yes Counseling given: provider counseling Alcohol Alcohol Intake: current Alcohol intake frequency: 0-2 drinks per day Alcohol type: wine and hard liquor Substance Use Substance use: Never Substance use type: does not use Details: t-1, wine Prental History History 0 Para Hx # Term Pregnancies Multiple births Hx # Pregnancies Ectopic pregnancies AB induced Hx Number of Living Children AB spontaneous Vital Signs and Lab Results Vital Signs Most Recent Vital Signs in EMR: Most Recent Vital Signs Temp Pulse Resp BP Pulse Ox 36.6 C 82 18 131/80 98 12/23/23 10:26 12/23/23 10:26 12/23/23 10:26 12/23/23 10:26 12/23/23 10:26 Point of Care Results Point of Care Results: POC- Test(urine) Negative 12/23/23 09:25 Lab Results Blood Type / Crossmatch: 2 No Data to Display Complete Blood Count: No Data to Display Complete Metabolic Panel: No Data to Display Liver Function Panel: No Data to Display Coagulation Panel: No Data to Display Cardiac Panel: No Data to Display Arterial Blood Gas: No Data to Display Venous Blood Gas: No Data to Display Pancreas Panel: No Data to Display Thyroid Panel: No Data to Display Infectious Disease: No Data to Display Blood Cultures: No Data to Display Toxicology Panel: No Data to Display Panel: No Data to Display Anesthesia Assessment and Plan Anesthesia History Personal History: No History of Anesthesia Complications Family History: No Family History of Anesthesia Complications Exercise Tolerance Exercise Tolerance: Metabolic Equivalents>4 Pertinent Negatives Pertinent Negatives: No Symptoms of GERD, No Major Cardiovascular Symptoms or Complaints and No Major Pulmonary Symptoms or Complaints Cardiac & Pulmonary Exam Cardiac Exam: Normal S1/S2 Heart Sounds Pulmonary Exam: Clear Bilateral Breath Sounds Implantable Cardiac Device Does patient have a Pacemaker or an ICD?: No Airway Exam Known Difficult Airway: No Mallampati Class: 2 Mouth Opening: Normal (> 3cm) Thyromental Distance: Greater than 3 cm Neck Range of Motion: Full ROM Neck Circumference: Normal Teeth Condition: Normal Dentition ASA Classification ASA Score: ASA 2 Emergency Case?: No NPO Status NPO Status: NPO Clears >2 hours, Solids >8 hours Status Status: Negative HCG Anesthesia Plan Resuscitation Status: Full Code Anesthesia Technique: General Anesthesia Airway Planned: Endotracheal Tube Monitors Used: Standard Monitors
[2023-12-23] MEDS: ceFAZolin 2 GM/50 ML BAG IVPB (11:33)
[2023-12-23] MEDS: Tranexamic Acid 1,000 MG/10 ML VIAL 1000 MG (11:56)
[2023-12-23] MEDS: Bupivacaine 0.25% Pres-Free 30 ML VIAL (12:20)
--- NOTE | 2023-12-23 12:43 | DI.RAD_ITS ---
Exam(s) XR HIP RT IN OR EXAM: XR HIP RT IN OR CLINICAL HISTORY: right hip pain TECHNIQUE: 2D and realtime digital imaging was performed. CONTRAST MATERIAL: Refer to procedure report. COMPARISON: No exams were available for comparison FINDINGS: Fluoroscopy was provided for Dr. Martinez in the OR . Please refer to the procedure report for complet e details. Ka,r=1.40 mGy IMPRESSION: RADIATION DOSE DELIVERED:
--- NOTE | 2023-12-23 14:07 | W.ANESPOSTOP ---
Postoperative Evaluation Date, Time and Location Date Performed: 12/23/23 Time Performed: 14:07 Patient Location: Day Surgery Unit Vital Signs Most Recent Imported Vital Signs: Most Recent Vital Signs Temp Pulse Resp BP Pulse Ox 36.4 C L 84 16 121/70 99 12/23/23 13:32 12/23/23 13:32 12/23/23 13:32 12/23/23 13:32 12/23/23 13:32 Pain Score Most Recent Pain Score: Most Recent Pain Score Pain Level 4 12/23/23 13:32 Assessment Mental Status: Awake (Alert & Oriented to Patient Baseline) Airway and Respiratory Function: Patent airway with normal (patient baseline) respiratory exam Cardiovascular Function: Hemodynamically Stable Hydration Status: Adequately Hydrated Nausea & Vomiting: No Nausea or Vomiting Pain: Pain is tolerable per patient Peripheral Nerve Block: Patient did not receive a nerve block
== END 2023-12-23 14:30 | disposition home or self-care (01) ==
PROVIDERS: PCP Nurse Practitioner Family; Visit Provider Student in an Organized Health Care Education/Training Program
PROC: (CPT 29863; principal; 2023-12-23 11:30)
DX: M70.61 Trochanteric bursitis, right hip (principal); M76.31 Iliotibial band syndrome, right leg; E78.5 Hyperlipidemia, unspecified; F17.210 Nicotine dependence, cigarettes, uncomplicated; F41.1 Generalized anxiety disorder
CPT/HCPCS: 27062; 27305; 81025; 73501; J0665; J0690; J1100; J1885; J2250; J2405; J2704

== ENCOUNTER 2024-09-08 02:05 | Outpatient (CLI) | payer OTHER, SELFPAY ==
[2024-09-08 12:26] LABS: HCT 43.7 % (36.0-46.0); HGB 14.5 g/dL (11.2-15.7); MCH 31.7 pg (27.0-33.0); MCHC 33.2 % (32.0-36.0); MCV 96 fL (80-95); MPV 10.5 fL (8.0-11.0); Platelet Count 306 10^3/uL (130-400); RBC 4.57 10^6/uL (3.93-5.22); RDW 12.2 % (11.7-14.6); RDW-SD 42.4 fL; WBC 9.28 10^3/uL (4.4-10.8)
[2024-09-08 12:47] LABS: Anion Gap 9.5 mmol/L (3-11); BUN 10 mg/dL (7-18); CO2 27.5 mmol/L (21.0-32.0); CREATININE 0.9 mg/dL (0.55-1.02); Calcium 9.3 mg/dL (8.5-10.1); Chloride 105 mmol/L (98-107); Estimated GFR 80.34 (mL/min/1.73m2); Glucose 92 mg/dL (74-106); Sodium 142 mmol/L (136-145); TSH (W/Ref FT4) 1.04 uIU/mL (0.36-3.74)
[2024-09-08 18:15] LABS: Estradiol 188 pg/mL (See Note)
[2024-09-08 19:07] LABS: FSH 2.7 mIU/mL (See Note); LH 0.9 mIU/mL (See Note)
== END 2024-09-08 02:06 | disposition home or self-care (01) ==
LOC: LOS 02:05
PROVIDERS: PCP Nurse Practitioner Family; Referring Provider Nurse Practitioner Family; Visit Provider Nurse Practitioner Family
DX: N95.1 Menopausal and female climacteric states (principal); Z00.00 Encounter for general adult medical examination without abnormal findings; F41.1 Generalized anxiety disorder; E66.3 Overweight; Z12.39 Encounter for other screening for malignant neoplasm of breast
CPT/HCPCS: 36415; 80048; 85027; 82670; 83001; 83002; 84443

== ENCOUNTER 2024-09-14 14:34 | Outpatient (REF) | payer OTHER, SELFPAY ==
[2024-09-18 12:31] LABS: Chlamydia Result Negative (Negative); GC Result Negative (Negative)
== END 2024-09-14 14:35 | disposition home or self-care (01) ==
LOC: LBN 14:34
PROVIDERS: PCP Nurse Practitioner Family; Visit Provider Obstetrics & Gynecology
DX: Z11.3 Encounter for screening for infections with a predominantly sexual mode of transmission (principal)
CPT/HCPCS: 87491; 87591

== ENCOUNTER 2024-10-10 02:47 | Outpatient (CLI) | payer OTHER, SELFPAY ==
--- NOTE | 2024-10-10 13:29 | DI.MAMMO_ITS ---
Exam(s) MAMMO SCREENING EXAM: MAMMO SCREENING CLINICAL HISTORY: screening,Z12.39 TECHNIQUE: Mammograms were interpreted according to the usual protocol including computer analysis w [employer] CAD system, tomosynthesis and C-view imaging. COMPARISON: 2018 through 2022 FINDINGS: The breasts are composed of scattered fibroglandular densities, Breast Density category B. No suspicious masses or suspicious microcalcifications are seen. No skin thickening or abnormal axillary lymph nodes are seen. There has been no significant change from prior exams. IMPRESSION: BI-RADS Category 1, Negative mammogram Yearly screening mammography is recommended. Breast Density - Category B, scattered fibroglandular densities. A negative radiographic report should not delay biopsy if a dominant or clinically suspicious mass is present. Up to ten percent of cancers are not identified on mammography. A negative report may reinforce clinical impression. Adenosis and dense breasts may obscure an underlying neoplasm. False positive reports average 6 to 10%. Patient will receive a letter notifying them of these results.
== END 2024-10-10 03:07 ==
LOC: DI 02:48
PROVIDERS: PCP Nurse Practitioner Family; Visit Provider Nurse Practitioner Family
DX: Z12.31 Encounter for screening mammogram for malignant neoplasm of breast (principal); R92.323 Mammographic fibroglandular density, bilateral breasts
CPT/HCPCS: 77063; 77067

== ENCOUNTER 2025-02-13 15:42 | Outpatient (CLI) | payer OTHER, SELFPAY ==
--- NOTE | 2025-02-13 15:15 | DI.RAD_ITS ---
Exam(s) XR HIP RT AP LAT ONLY EXAM: XR HIP RT AP LAT ONLY CLINICAL HISTORY: RIGHT HIP PAIN. TECHNIQUE: 2D digital imaging was performed of the right hip. Two images were obtained. AP pelvis a nd lateral right hip views were obtained. COMPARISON: CR LEFT HIP COMPLETE from 07/11/2009 CR XR HIP RT COMPLETE AP PELVIS from 09/01/2021 FINDINGS: BONES: No acute fracture is present. No bony destructive lesion is seen. JOINTS: No dislocation present. SOFT TISSUE: There is an IUD in the pelvis. IMPRESSION: Unremarkable radiographs of the right hip. Unremarkable radiographs of the pelvis. DATA REPOSITORY: RADIATION DOSE DELIVERED:
== END 2025-02-13 15:43 | disposition home or self-care (01) ==
LOC: DIORS 15:42
PROVIDERS: PCP Nurse Practitioner Family; Visit Provider Student in an Organized Health Care Education/Training Program
DX: M76.31 Iliotibial band syndrome, right leg (principal); M70.61 Trochanteric bursitis, right hip; M25.551 Pain in right hip; G89.29 Other chronic pain
CPT/HCPCS: 73502

== ENCOUNTER → 2025-10-01 02:06 | Outpatient (CLI) | payer OTHER, SELFPAY ==
--- NOTE | 2025-10-01 06:30 | DI.MRI_ITS ---
Exam(s) MR LOWER JOINT RT WO EXAM: MR LOWER JOINT RT WO CLINICAL HISTORY: R HIP PAIN,iliotibial band syndrome rt,trochanteric bursitis, rt,chronic rt TECHNIQUE: Multiplanar multisequence MRI of right hip was performed COMPARISON: MR MR LOWER JOINT RT WO from 08/26/2023 CR XR HIP RT AP LAT ONLY from 02/13/2025 FINDINGS: Bones: There is no evidence of a fracture or avascular necrosis. There is no significant joint effusion. No bone marrow edema is seen. The SI joints and symphysis pubis are well maintained. Labrum: There is hyperintense signal seen in the superior labrum, best appreciated on the coronal views, consistent with a tear. There is no evidence of a paralabral cyst. Musculotendinous structures: There is again seen hyperintense signal associated with the gluteus medius tendon consistent with tendinosis. Small partial tear should also be considered. There has been a slight increase in size of the fluid signal superior to the greater trochanter. There is hyperintense signal seen in the soft tissues lateral to the greater trochanter consistent with a bursitis. Intrapelvic structures demonstrate no significant abnormality. The right iliotibial band appears grossly unremarkable. The left iliotibial band is thickened. There is mild hyperintense signal seen within the left iliotibial band. This can be seen with chronic IT band issues. There is again seen a a cystic lesion in the right side of the vulva. It measures 1.8 x 1.6 cm. This compares to 2 x 1.3 cm on the prior examination. This may represent a Bartholin's cyst. IMPRESSION: 1. Findings again seen consistent with gluteus medius tendinitis and trochanteric bursitis. Slight progression of the changes are seen since the prior examination. 2. Chronic thickening of the left iliotibial band. Mild hyperintense signal seen within the band and a superimposed acute process cannot be excluded. DATA REPOSITORY:
== END ==
LOC: DI 02:07
PROVIDERS: PCP Nurse Practitioner Family; Visit Provider Student in an Organized Health Care Education/Training Program
DX: M76.31 Iliotibial band syndrome, right leg (principal); M70.61 Trochanteric bursitis, right hip
CPT/HCPCS: 73721

== ENCOUNTER 2025-10-02 01:22 | Outpatient (CLI) | payer OTHER, SELFPAY ==
[2025-10-02 08:25] LABS: ALT 24 U/L (14-59); AST 15 U/L (15-37); Albumin 4.1 g/dL (3.4-5.0); Alkaline Phosphatase 64 U/L (46-116); Anion Gap 8.5 mmol/L (3-11); BUN 12 mg/dL (7-18); Bilirubin, Total 0.8 mg/dL (0.2-1.0); CO2 27.5 mmol/L (21.0-32.0); Calcium 8.9 mg/dL (8.5-10.1); Chloride 104 mmol/L (98-107); Cholesterol 178 mg/dL (<200); Glucose 87 mg/dL (74-106); HDL Cholesterol 80 mg/dL (>or=50); Potassium 4.6 mmol/L (3.5-5.1); Sodium 140 mmol/L (136-145); Total Protein 7.3 g/dL (6.4-8.2)
== END 2025-10-02 01:23 | disposition home or self-care (01) ==
PROVIDERS: PCP Nurse Practitioner Family; Visit Provider Nurse Practitioner Family
DX: Z00.00 Encounter for general adult medical examination without abnormal findings (principal); F41.1 Generalized anxiety disorder; E66.3 Overweight; F17.210 Nicotine dependence, cigarettes, uncomplicated
CPT/HCPCS: 36415; 80053; 80061

== ENCOUNTER → 2025-10-15 01:29 | Outpatient (CLI) | payer OTHER, SELFPAY ==
--- NOTE | 2025-10-15 07:36 | DI.MAMMO_ITS ---
Exam(s) MAMMO SCREENING EXAM: MAMMO SCREENING CLINICAL HISTORY: screening,z12.39 TECHNIQUE: Mammograms were interpreted according to the usual protocol including computer analysis with CAD system, tomosynthesis and C-view imaging. COMPARISON: 2018 through 2023 FINDINGS: The breasts are composed of scattered fibroglandular densities, Breast Density category B. No suspicious masses or suspicious microcalcifications are seen. No skin thickening or abnormal axillary lymph nodes are seen. There has been no significant change from prior exams. IMPRESSION: BI-RADS Category 1, Negative mammogram Yearly screening mammography is recommended. Breast Density - Category B - There are scattered areas of fibroglandular density. Breast density Category C or D implies that the patient has dense breast tissue. Dense breast tissue can make it harder to find cancer on a mammogram. Dense breast tissue is also associated with an increased risk of breast cancer. This information about the result of the mammogram report was provided to the patient to raise their awareness. Use this report when you speak with the patient about their risks for breast cancer, which includes their family history. At that time, you may recommend additional screening tests (Ultrasound or MRI) as these tests may add significant information. A negative radiographic report should not delay biopsy if a dominant or clinically suspicious mass is present. Up to ten percent of cancers are not identified on mammography. A negative report may reinforce clinical impression. Adenosis and dense breasts may obscure an underlying neoplasm. False positive reports average 6 to 10%. Patient will receive a letter notifying them of these results.
== END ==
LOC: DI 01:30
PROVIDERS: PCP Nurse Practitioner Family; Visit Provider Nurse Practitioner Family
DX: Z12.31 Encounter for screening mammogram for malignant neoplasm of breast (principal); R92.323 Mammographic fibroglandular density, bilateral breasts
CPT/HCPCS: 77063; 77067

== ENCOUNTER → 2025-10-17 02:08 | Outpatient (CLI) | payer OTHER, SELFPAY ==
--- NOTE | 2025-10-17 11:15 | DI.RAD_ITS ---
Exam(s) RF JOINT INJ. FLUORO GUID RAD EXAM: RF JOINT INJ. FLUORO GUID RAD CLINICAL HISTORY: rt hip pain,FLUORO GUIDED INJ,DEGENERATIVE TEAR OF LABRUM,M24.151. TECHNIQUE: 2D and realtime digital imaging was performed. CONTRAST MATERIAL: Intra-articular Omnipaque 300-1.5 cc COMPARISON: Prior relevant imaging studies reviewed. FINDINGS: This right hip intra-articular fluoroscopic guided steroid injection was performed at the request of the referring orthopedic surgeon. Patient was consented prior to this procedure. Patient was placed in the supine position on the fluoroscopy table. Using sterile technique and adequate skin-subcutaneous anesthesia, fluoroscopic guidance was used to advance a 22 gauge spinal needle into the hip joint using an anterior approach, being careful to avoid the common femoral artery. Intra-articular position was confirmed with injection of 1.5 cc Omnipaque 300. Thereafter a sterile solution of 40 milligram Depo-Medrol and 3 cc of 0.25 opacification was injected into the joint space. The indwelling needle was then removed. Patient tolerated the procedure well and there were no intraprocedural complications IMPRESSION: Successful fluoroscopic guided right hip steroid injection. RADIATION DOSE DELIVERED: Ka,r=5.47mGy
[2025-10-17] MEDS: Lidocaine 1% Pres-Free 30 ML VIAL IJ (11:47)
[2025-10-17] MEDS: methylPREDNISolone ACETATE 40 MG/ML VIAL IM (12:09)
[2025-10-17] MEDS: Omnipaque 300 MG/ML 10 ML BTL IJ (12:10)
[2025-10-17] MEDS: Bupivacaine 0.25% Pres-Free 10 ML VIAL IJ (12:12)
== END ==
LOC: DI 02:08
PROVIDERS: PCP Nurse Practitioner Family; Visit Provider Student in an Organized Health Care Education/Training Program
DX: M24.151 Other articular cartilage disorders, right hip (principal)
CPT/HCPCS: 20610; 77002; J0665; J1010